=== PATIENT | female | born 1940 | race Native Hawaiian/Other Pacific Islander ===

== ENCOUNTER 2016-05-03 07:40 | Outpatient (CLI) | payer OTHER ==
[2016-05-03 08:39] LABS: PLATELET COUNT 214 K/uL (152-353)
== END 2016-05-03 19:09 | disposition home or self-care (01) ==
LOC: LABW 07:40
PROVIDERS: Internal Medicine Endocrinology, Diabetes & Metabolism
DX: E03.8 Other specified hypothyroidism (principal); Z79.899 Other long term (current) drug therapy; I10 Essential (primary) hypertension; E83.42 Hypomagnesemia; Z51.81 Encounter for therapeutic drug level monitoring; D64.9 Anemia, unspecified
CPT/HCPCS: 36415; 80053; 82728; 83540; 83550; 83735; 84436; 84443; 84479; 85027

== ENCOUNTER 2016-10-27 08:35 | Outpatient (CLI) | payer OTHER ==
[2016-10-27 08:58] LABS: PLATELET COUNT 204 K/uL (152-353)
[2016-10-27 09:18] LABS: POTASSIUM 4.5 mmol/L (3.6-5.2)
== END 2016-10-27 09:35 | disposition home or self-care (01) ==
LOC: LABW 08:35
PROVIDERS: Internal Medicine Endocrinology, Diabetes & Metabolism
DX: E03.8 Other specified hypothyroidism (principal); D64.89 Other specified anemias; Z79.899 Other long term (current) drug therapy; E78.4 Other hyperlipidemia; I10 Essential (primary) hypertension; E11.9 Type 2 diabetes mellitus without complications; E83.42 Hypomagnesemia
CPT/HCPCS: 36415; 80053; 80061; 83036; 83735; 84443; 85027

== ENCOUNTER 2016-12-15 09:36 | Outpatient (CLI) | payer OTHER | END 2016-12-15 19:03 | disposition home or self-care (01) | LOC: RAD 09:36 | DX: M41.86 Other forms of scoliosis, lumbar region (principal); M47.895 Other spondylosis, thoracolumbar region ==

== ENCOUNTER 2017-02-12 15:31 | Outpatient (CLI) | payer OTHER | END 2017-02-12 16:35 | disposition home or self-care (01) | LOC: RAD 15:31 | DX: R05 Cough (principal) ==

== ENCOUNTER 2017-05-22 14:20 | Outpatient (CLI) | payer OTHER | END 2017-05-22 22:57 | disposition home or self-care (01) | LOC: RAD 14:20 | DX: M25.562 Pain in left knee (principal) ==

== ENCOUNTER 2017-06-14 11:22 | Outpatient (CLI) | payer OTHER | END 2017-06-14 22:05 | disposition home or self-care (01) | LOC: MAMMO 11:22 | DX: Z12.31 Encounter for screening mammogram for malignant neoplasm of breast (principal); M81.0 Age-related osteoporosis without current pathological fracture ==

== ENCOUNTER 2017-06-27 07:50 | Outpatient (CLI) | payer OTHER ==
[2017-06-27 08:21] LABS: PLATELET COUNT 198 K/uL (152-353)
[2017-06-27 08:52] LABS: POTASSIUM 3.7 mmol/L (3.6-5.2)
== END 2017-06-27 21:37 | disposition home or self-care (01) ==
LOC: LABW 07:50
PROVIDERS: Internal Medicine Endocrinology, Diabetes & Metabolism
DX: E03.8 Other specified hypothyroidism (principal); D64.89 Other specified anemias; E78.4 Other hyperlipidemia; Z79.899 Other long term (current) drug therapy; Z51.81 Encounter for therapeutic drug level monitoring; I10 Essential (primary) hypertension
CPT/HCPCS: 36415; 80053; 80061; 84443; 85027

== ENCOUNTER 2017-12-17 16:52 | Outpatient (CLI) | payer OTHER ==
[2017-12-17 17:09] LABS: PLATELET COUNT 211 K/uL (152-353)
== END 2017-12-17 19:57 | disposition home or self-care (01) ==
LOC: LABW 16:52
PROVIDERS: Internal Medicine Endocrinology, Diabetes & Metabolism
DX: E03.9 Hypothyroidism, unspecified (principal); I10 Essential (primary) hypertension; Z79.899 Other long term (current) drug therapy; D64.9 Anemia, unspecified
CPT/HCPCS: 36415; 80053; 84443; 85027

== ENCOUNTER 2018-06-17 08:21 | Outpatient (CLI) | payer OTHER ==
[2018-06-17 08:40] LABS: PLATELET COUNT 189 K/uL (152-353)
[2018-06-17 09:01] LABS: POTASSIUM 3.7 mmol/L (3.6-5.2)
== END 2018-06-17 19:30 | disposition home or self-care (01) ==
LOC: LABW 08:21
PROVIDERS: Internal Medicine Endocrinology, Diabetes & Metabolism
DX: D64.89 Other specified anemias (principal); Z79.899 Other long term (current) drug therapy; E03.8 Other specified hypothyroidism; E78.49 Other hyperlipidemia; I10 Essential (primary) hypertension
CPT/HCPCS: 36415; 80053; 80061; 84443; 85027

== ENCOUNTER 2018-10-21 15:40 | Outpatient (CLI) | payer OTHER | END 2018-10-21 23:59 | disposition home or self-care (01) | LOC: RAD 15:40 | DX: M54.6 Pain in thoracic spine (principal); M54.5 Low back pain; S69.82XA Other specified injuries of left wrist, hand and finger(s), initial encounter ==

== ENCOUNTER 2018-12-16 08:33 | Outpatient (CLI) | payer OTHER ==
[2018-12-16 09:22] LABS: POTASSIUM 4.9 mmol/L (3.6-5.2)
[2018-12-16 10:11] LABS: PLATELET COUNT 143 K/uL (152-353)
== END 2018-12-16 19:56 | disposition home or self-care (01) ==
LOC: LABW 08:33
PROVIDERS: Internal Medicine Endocrinology, Diabetes & Metabolism
DX: E03.8 Other specified hypothyroidism (principal); D64.89 Other specified anemias; Z79.899 Other long term (current) drug therapy; E78.49 Other hyperlipidemia; I10 Essential (primary) hypertension
CPT/HCPCS: 36415; 80053; 80061; 84436; 84443; 84479; 85027

== ENCOUNTER 2019-02-02 21:09 | Outpatient (CLI) | payer OTHER ==
[2019-02-02 21:48] LABS: PLATELET COUNT 149 K/uL (152-353)
[2019-02-02 22:38] LABS: POTASSIUM 4.8 mmol/L (3.6-5.2)
== END 2019-02-02 21:35 | disposition home or self-care (01) ==
LOC: LABW 21:09
PROVIDERS: Internal Medicine
DX: N18.3 Chronic kidney disease, stage 3 (moderate) (principal)
CPT/HCPCS: 36415; 80053; 83735; 83970; 84100; 85027

== ENCOUNTER 2019-03-05 16:11 | Outpatient (CLI) | payer OTHER ==
[2019-03-05 16:42] LABS: PLATELET COUNT 152 K/uL (152-353)
[2019-03-05 16:44] LABS: POTASSIUM 5.3 mmol/L (3.6-5.2)
== END 2019-03-05 19:22 | disposition home or self-care (01) ==
LOC: LABW 16:11
PROVIDERS: Internal Medicine
DX: N18.3 Chronic kidney disease, stage 3 (moderate) (principal)
CPT/HCPCS: 36415; 80053; 83735; 83970; 84100; 85027

== ENCOUNTER 2019-05-04 21:47 | Emergency (ER) | payer OTHER ==
[~2019-05-04] VITALS: Ht 157.5 cm; Wt 79.4 kg
[2019-05-04 22:40] LABS: PLATELET COUNT 158 K/uL (152-353)
[2019-05-04 22:50] LABS: POTASSIUM 4.9 mmol/L (3.6-5.2)
[2019-05-05 01:50] VITALS: BP 203/89; TEMP 97
== END 2019-05-05 01:50 | disposition home or self-care (01) ==
LOC: ED 21:47
PROVIDERS: Hospitalist
DX: S43.492A Other sprain of left shoulder joint, initial encounter (principal); S83.8X2A Sprain of other specified parts of left knee, initial encounter; S00.83XA Contusion of other part of head, initial encounter; S40.012A Contusion of left shoulder, initial encounter; S80.02XA Contusion of left knee, initial encounter; W18.39XA Other fall on same level, initial encounter; Y92.090 Kitchen in other non-institutional residence as the place of occurrence of the external cause
CPT/HCPCS: 80048; 85027; 85610; 85730; 90471; 90715; 96372; 99284; J2270; J2405

== ENCOUNTER 2019-06-16 19:33 | Outpatient (CLI) | payer OTHER ==
[2019-06-16 20:23] LABS: PLATELET COUNT 152 K/uL (152-353)
[2019-06-16 20:53] LABS: POTASSIUM 5.6 mmol/L (3.6-5.2)
== END 2019-06-16 20:12 | disposition home or self-care (01) ==
LOC: LABW 19:33
PROVIDERS: Internal Medicine Endocrinology, Diabetes & Metabolism
DX: E83.51 Hypocalcemia (principal); E03.8 Other specified hypothyroidism; I10 Essential (primary) hypertension; Z79.899 Other long term (current) drug therapy; D64.89 Other specified anemias
CPT/HCPCS: 36415; 80053; 84436; 84443; 84479; 85027

== ENCOUNTER 2019-07-09 09:06 | Emergency (ER) | payer OTHER ==
[~2019-07-09] VITALS: Ht 157.5 cm; Wt 79.4 kg
[2019-07-09 09:07] VITALS: BP 161/107; TEMP 97.9
[2019-07-09 09:40] LABS: POTASSIUM 4.1 mmol/L (3.6-5.2)
[2019-07-09 09:50] LABS: PLATELET COUNT 159 K/uL (152-353)
== END 2019-07-09 12:22 | disposition home or self-care (01) ==
LOC: ED 09:06
PROVIDERS: Emergency Medicine
DX: R41.82 Altered mental status, unspecified (principal); E86.0 Dehydration
CPT/HCPCS: 80053; 81000; 85027; 93005; 96360; 96361; 99284

== ENCOUNTER 2019-08-10 17:23 | Emergency (ER) | payer OTHER ==
[~2019-08-10] VITALS: Ht 157.5 cm; Wt 74.4 kg
[2019-08-10 20:03] VITALS: BP 135/82; TEMP 98
== END 2019-08-10 20:09 | disposition home or self-care (01) ==
LOC: ED 17:23
DX: S00.81XA Abrasion of other part of head, initial encounter (principal); M25.512 Pain in left shoulder; M25.562 Pain in left knee; S42.035A Nondisplaced fracture of lateral end of left clavicle, initial encounter for closed fracture; R51 Headache; W18.39XA Other fall on same level, initial encounter; Y92.096 Garden or yard of other non-institutional residence as the place of occurrence of the external cause
CPT/HCPCS: 36415; 96372; 99283; J1885; J2270; J2405

== ENCOUNTER 2019-09-19 09:13 | Outpatient (CLI) | payer OTHER | END 2019-09-19 19:39 | disposition home or self-care (01) | LOC: RAD 09:13 | PROVIDERS: ATTEND Nurse Practitioner Family | DX: M25.512 Pain in left shoulder (principal); M79.602 Pain in left arm; R22.32 Localized swelling, mass and lump, left upper limb ==

== ENCOUNTER 2019-10-20 21:07 | Emergency (ER) | payer OTHER ==
[~2019-10-20] VITALS: Ht 162.6 cm; Wt 74.4 kg
[2019-10-20 21:07] VITALS: TEMP 98.7
[2019-10-20 22:25] VITALS: BP 198/72
== END 2019-10-20 22:25 | disposition home or self-care (01) ==
LOC: ED 21:07
DX: S00.83XA Contusion of other part of head, initial encounter (principal); S09.8XXA Other specified injuries of head, initial encounter; S00.81XA Abrasion of other part of head, initial encounter; S51.011A Laceration without foreign body of right elbow, initial encounter; W01.198A Fall on same level from slipping, tripping and stumbling with subsequent striking against other object, initial encounter; Y92.098 Other place in other non-institutional residence as the place of occurrence of the external cause
CPT/HCPCS: 99283

== ENCOUNTER 2019-12-07 19:17 | Outpatient (CLI) | payer OTHER ==
[2019-12-07 21:25] LABS: POTASSIUM 4.7 mmol/L (3.6-5.2)
== END 2019-12-07 19:54 | disposition home or self-care (01) ==
LOC: LABW 19:17
PROVIDERS: Internal Medicine
DX: N18.30 Chronic kidney disease, stage 3 unspecified (principal)
CPT/HCPCS: 36415; 80053; 83735; 83970; 84100

== ENCOUNTER 2019-12-25 11:36 | Outpatient (CLI) | payer OTHER ==
[2019-12-25 12:06] LABS: PLATELET COUNT 192 K/uL (152-353)
[2019-12-25 12:16] LABS: POTASSIUM 4.4 mmol/L (3.6-5.2)
== END 2019-12-25 23:16 | disposition home or self-care (01) ==
LOC: LABW 11:36
PROVIDERS: Internal Medicine Endocrinology, Diabetes & Metabolism
DX: E03.8 Other specified hypothyroidism (principal); E83.52 Hypercalcemia; E87.5 Hyperkalemia; E78.49 Other hyperlipidemia; D64.89 Other specified anemias
CPT/HCPCS: 36415; 80053; 80061; 83735; 84436; 84443; 84479; 85027

== ENCOUNTER 2020-01-28 14:01 | Outpatient (CLI) | payer OTHER | END 2020-01-28 20:02 | disposition home or self-care (01) | LOC: RAD 14:01 | PROVIDERS: ATTEND Nurse Practitioner Family | DX: R60.0 Localized edema (principal) ==

== ENCOUNTER 2020-03-22 17:45 | Outpatient (CLI) | payer OTHER ==
[2020-03-22 18:44] LABS: PLATELET COUNT 186 K/uL (152-353)
[2020-03-22 19:23] LABS: POTASSIUM 4.5 mmol/L (3.6-5.2)
== END 2020-03-22 20:58 | disposition home or self-care (01) ==
LOC: LABW 17:45
PROVIDERS: ATTEND Internal Medicine
DX: N18.4 Chronic kidney disease, stage 4 (severe) (principal); R82.998 Other abnormal findings in urine
CPT/HCPCS: 36415; 80053; 81000; 82306; 82330; 82570; 83735; 83970; 84100; 84155; 85027; 87077; 87086; 87088; 87186

== ENCOUNTER 2020-04-28 11:10 | Emergency (ER) | payer OTHER ==
[~2020-04-28] VITALS: Ht 162.6 cm; Wt 74.4 kg
[2020-04-28 11:22] VITALS: TEMP 97.4
[2020-04-28 14:28] VITALS: BP 169/70
== END 2020-04-28 14:28 | disposition home or self-care (01) ==
LOC: ED 11:10
PROC: 0HQ1XZZ Repair Face Skin, External Approach (ICD-10-PCS; principal; 2020-04-28)
DX: S02.2XXA Fracture of nasal bones, initial encounter for closed fracture (principal); S01.81XA Laceration without foreign body of other part of head, initial encounter; W01.198A Fall on same level from slipping, tripping and stumbling with subsequent striking against other object, initial encounter; Y92.098 Other place in other non-institutional residence as the place of occurrence of the external cause
CPT/HCPCS: 90471; 90715; 96372; 99283; 99284; J7040

== ENCOUNTER 2020-06-28 15:55 | Outpatient (CLI) | payer OTHER ==
[2020-06-28 16:38] LABS: PLATELET COUNT 218 K/uL (152-353)
== END 2020-06-28 21:54 | disposition home or self-care (01) ==
LOC: LABW 15:55
PROVIDERS: ATTEND Internal Medicine Endocrinology, Diabetes & Metabolism
DX: D64.89 Other specified anemias (principal); E03.8 Other specified hypothyroidism; I10 Essential (primary) hypertension; E83.51 Hypocalcemia; Z79.899 Other long term (current) drug therapy
CPT/HCPCS: 36415; 80053; 83735; 84439; 84443; 85027

== ENCOUNTER 2020-07-22 14:13 | Outpatient (CLI) | payer OTHER | END 2020-07-22 22:00 | disposition home or self-care (01) | LOC: MAMMO 14:13 | PROVIDERS: ATTEND Family Medicine | DX: N63.0 Unspecified lump in unspecified breast (principal) ==

== ENCOUNTER 2020-07-26 19:05 | Emergency (ER) | payer OTHER ==
[~2020-07-26] VITALS: Ht 162.6 cm; Wt 74.8 kg
[2020-07-26 19:10] VITALS: TEMP 97.9
[2020-07-26 20:45] VITALS: BP 158/69
== END 2020-07-26 20:45 | disposition home or self-care (01) ==
LOC: ED 19:05
DX: S39.012A Strain of muscle, fascia and tendon of lower back, initial encounter (principal); S00.83XA Contusion of other part of head, initial encounter; S43.014A Anterior dislocation of right humerus, initial encounter; W01.198A Fall on same level from slipping, tripping and stumbling with subsequent striking against other object, initial encounter; Y92.098 Other place in other non-institutional residence as the place of occurrence of the external cause
CPT/HCPCS: 96372; 99283; J1885

== ENCOUNTER 2020-08-05 20:15 | Observation (INO) | payer OTHER ==
[~2020-08-05] VITALS: Ht 162.6 cm; Wt 79.2 kg
[2020-08-05 21:35] LABS: PLATELET COUNT 197 K/uL (152-353)
[2020-08-05 21:51] LABS: POTASSIUM 4.9 mmol/L (3.6-5.2); SODIUM 141 mmol/L (136-145)
[2020-08-05 22:41] VITALS: BP 187/66; TEMP 98.3; Ht 162.6 cm; Wt 79.2 kg
[2020-08-06] VITALS: BP 148/66; TEMP 97.9
[2020-08-06] MEDS ORDERED: SPIRONOLACT25 MG PO (03:29)
[2020-08-06] MEDS ORDERED: OYSTER SHELL C500 M4 PO (03:32)
[2020-08-06] MEDS ORDERED: VITAMIN D2000 UNI3 PO (03:35)
[2020-08-06] MEDS ORDERED: HYDR10TA47 PO (03:36)
[2020-08-06] MEDS ORDERED: LEVO-T300 MCG PO (03:40)
[2020-08-06] MEDS ORDERED: LEVO-T150 MCG PO (03:42)
[2020-08-06] MEDS ORDERED: CALCITRIOL0.25 MCG PO (03:45)
[2020-08-06] MEDS ORDERED: PROBEN/COLCH1 TAB PO (03:50)
[2020-08-06 04:00] VITALS: BP 123/43; TEMP 97.9
[2020-08-06] MEDS ORDERED: GRALISE300 MG PO (04:05)
[2020-08-06] MEDS ORDERED: MAG OXIDE400 MG PO (04:06)
[2020-08-06] MEDS ORDERED: AMIODARONE HYD200 MG PO (04:08)
[2020-08-06] MEDS ORDERED: CARV12.5 PO (04:10)
[2020-08-06] MEDS ORDERED: POTA20TA4 PO (04:11)
[2020-08-06] MEDS ORDERED: DIGOX125 MCG PO (04:16)
[2020-08-06] MEDS ORDERED: CYCL10TA35 PO (04:18)
[2020-08-06] MEDS ORDERED: AMBIEN5 MG PO (04:20)
[2020-08-06 04:49] LABS: PLATELET COUNT 163 K/uL (152-353)
[2020-08-06 05:04] LABS: POTASSIUM 4.2 mmol/L (3.6-5.2)
[2020-08-06 08:00] VITALS: BP 153/63; TEMP 98.2
--- NOTE | 2020-08-06 10:15 | NUR ---
LABS REPORTED TO DR BROOKS VIA PHONE AT THIS ITME. NEW ORDERS REC'D TO GIVE 500ML NS AT 100ML/HR AND TO REPLACE MAGNESIUM PER ELECTROLYTE PROTOCOL.
[2020-08-06 12:00] VITALS: BP 155/60; TEMP 98
[2020-08-06 16:00] VITALS: BP 141/53; TEMP 97.4
--- NOTE | 2020-08-06 18:18 | NUR ---
PT TELEMETRY DC'D, 20G IV TO LA DC'D TIP INTACT NO REDNESS OR SWELLING NOTED. DISCHARGE INSTRUCTIONS GIVEN TO PT'S DAUGHTER. INSTRUCTED TO FOLLOW UP WITH DR. BROOKS ON AUGUST 10, 2020 AT 1100. INSTRUCTED TO LEAVE UNABOOTS ON UNTIL FOLLOW UP WITH WOUND CARE CLINIC. INSTRUCTED TO ACCOUNT SUPPORT MANAGER BACTRIM DS ANTIBIOTICS AND TAKE UNTIL COMPLETE. PT CURRENTLY EATING SUPPER AND WILL BE DISCHARGED WHEN DONE. PT'S DAUGHTER HERE TO TAKE PT HOME.
--- NOTE | 2020-08-07 13:37 | NUR ---
PT CALLED AND STATED THAT IN THE PAST WHEN SHE HAD TAKEN BACTRIM DS THAT HER FACE BROKE OUT. EXPLAINED TO PT THAT I WOULD HAVE TO NOTIFY DR BROOKS AND I WOULD CALL HER BACK. [address] BROOKS AND INFOMRED HER WHAT PT HAD CALLED AND STATED. DR BROOKS REQUESTED URINE CULTURE RESULTS. INFORMATION LOOKED UP AND RESULTS REPORTED AT THIS TIME VIA PHONE. NEW ORDERS REC'D TO CALL KEFLEX 500MG TAKE ONE TAB EVERY 8 HRS FOR 3 DAYS. WILL CALL [facility] IN PER MD ORDERS. AND WILL CONTACT PT AND INFOMR HER WELL.
== END 2020-08-06 18:45 | disposition home or self-care (01) ==
LOC: MED/SURG 20:15
PROVIDERS: ADMIT Family Medicine; ATTEND Family Medicine
DX: N39.0 Urinary tract infection, site not specified (principal); B96.20 Unspecified Escherichia coli [E. coli] as the cause of diseases classified elsewhere
CPT/HCPCS: 36415; 80053; 81000; 82550; 83735; 84100; 84484; 85027; 87040; 87077; 87086; 87088; 87186; 87635; 93005; 96365; 96367; 99220; G0378; G0379; J0696; J3475; U0003

== ENCOUNTER 2020-09-05 05:24 | Emergency (ER) | payer OTHER ==
[~2020-09-05] VITALS: Ht 162.6 cm; Wt 77.1 kg
[2020-09-05 05:24] VITALS: TEMP 96.5
[~2020-09-05 05:24] MED LIST: AMBIEN5 MG PO; AMIODARONE HYD200 MG PO; CALCITRIOL0.25 MCG PO; CARV12.5 PO; CYCL10TA35 PO; DIGOX125 MCG PO; GRALISE300 MG PO; HYDR10TA47 PO; LEVO-T150 MCG PO; LEVO-T300 MCG PO; MAG OXIDE400 MG PO; OYSTER SHELL C500 M4 PO; POTA20TA4 PO; PROBEN/COLCH1 TAB PO; SPIRONOLACT25 MG PO; VITAMIN D2000 UNI3 PO
[2020-09-05 06:11] LABS: PLATELET COUNT 163 K/uL (152-353)
[2020-09-05 06:17] LABS: POTASSIUM 4.6 mmol/L (3.6-5.2)
[2020-09-05 09:00] VITALS: BP 129/66
== END 2020-09-05 09:25 | disposition short-term general hospital (02) ==
LOC: ED 05:24
PROVIDERS: Family Medicine
PROC: 0HQ1XZZ Repair Face Skin, External Approach (ICD-10-PCS; principal; 2020-09-05)
DX: S72.091A Other fracture of head and neck of right femur, initial encounter for closed fracture (principal); S43.084A Other dislocation of right shoulder joint, initial encounter; S40.211A Abrasion of right shoulder, initial encounter; S50.311A Abrasion of right elbow, initial encounter; S01.81XA Laceration without foreign body of other part of head, initial encounter; S72.114A Nondisplaced fracture of greater trochanter of right femur, initial encounter for closed fracture; S43.014A Anterior dislocation of right humerus, initial encounter; W01.198A Fall on same level from slipping, tripping and stumbling with subsequent striking against other object, initial encounter; Y92.89 Other specified places as the place of occurrence of the external cause
CPT/HCPCS: 80053; 85027; 96360; 96361; 99284; J2270

== ENCOUNTER 2020-09-20 14:30 | Emergency (ER) | payer OTHER ==
[~2020-09-20] VITALS: Ht 162.6 cm; Wt 77.1 kg
[2020-09-20 15:25] LABS: PLATELET COUNT 195 K/uL (152-353)
[2020-09-20 15:34] LABS: POTASSIUM 4.9 mmol/L (3.6-5.2); SODIUM 134 mmol/L (136-145)
[2020-09-20 20:25] VITALS: BP 164/81; TEMP 98.3
== END 2020-09-20 20:25 | disposition home or self-care (01) ==
LOC: ED 14:30
PROVIDERS: Emergency Medicine Emergency Medical Services
PROC: 0T9B70Z Drainage of Bladder with Drainage Device, Via Natural or Artificial Opening (ICD-10-PCS; principal; 2020-09-20)
DX: Z91.81 History of falling (principal); S00.03XA Contusion of scalp, initial encounter; S00.83XA Contusion of other part of head, initial encounter; N39.0 Urinary tract infection, site not specified; W01.198A Fall on same level from slipping, tripping and stumbling with subsequent striking against other object, initial encounter; Y92.89 Other specified places as the place of occurrence of the external cause
CPT/HCPCS: 36591; 51702; 80053; 81000; 83880; 84484; 85027; 87077; 87086; 87088; 87186; 93005; 96365; 96375; 99284; J0696; J1642; J1940

== ENCOUNTER 2020-09-22 12:40 | Inpatient (IN) | payer OTHER ==
[~2020-09-22] VITALS: Ht 157.5 cm; Wt 81.2 kg
[2020-09-22 12:40] VITALS: BP 164/69; TEMP 97.6
[2020-09-22 13:00] VITALS: BP 149/74
[2020-09-22 14:00] VITALS: BP 151/77
[2020-09-22 14:59] LABS: PLATELET COUNT 165 K/uL (152-353)
[2020-09-22 15:00] VITALS: BP 141/69
[2020-09-22 15:07] LABS: POTASSIUM 4.3 mmol/L (3.6-5.2)
[2020-09-22 17:00] VITALS: BP 162/66
[2020-09-22] MEDS ORDERED: TRAM50TA PO (17:17)
--- NOTE | 2020-09-22 19:57 | NUR ---
PT ARRIVED TO MED-SURG FLOOR AT 1825 FROM ER. PT ALERT AND ORIENTED. DAUGHTER AT BEDSIDE. IVF INFUSING AT 100ML/HR WITH NS. ASSESSMENT NOT COMPLETED ON PT. REPORT GIVEN TO NOE CHAVEZ FOR ASSESSMENT TO BE COMPLETED.
[2020-09-22 20:36] VITALS: BP 95/52; TEMP 97.9
[2020-09-22] MEDS ORDERED: CYCL10TA35 PO (22:29)
[2020-09-22] MEDS ORDERED: TRAMADOL HYDROC50 MG PO (22:30)
[2020-09-22] MEDS ORDERED: KLOR-CON M2020 MEQ PO (22:31)
[2020-09-22] MEDS ORDERED: DIGO0.1230 PO (22:35)
[2020-09-22] MEDS ORDERED: SPIR100T7 PO (22:41)
[2020-09-22] MEDS ORDERED: MAG OXIDE250 MG PO (22:45)
[2020-09-22] MEDS ORDERED: [UNRECOGNIZED DRUG - CODE] PO (22:52)
[2020-09-23] VITALS (7 sets, daily range): BP systolic 105–132; BP diastolic 37–71; TEMP 97.3–97.9; Ht 157.5 cm; Wt 81.2 kg
[2020-09-23 08:14] LABS: POTASSIUM 4.2 mmol/L (3.6-5.2)
[2020-09-23 08:16] LABS: PLATELET COUNT 165 K/uL (152-353)
[2020-09-23] MEDS ORDERED: PANTOPRAZOLE 40MG TA PO (08:27)
--- NOTE | 2020-09-23 09:04 | NUR ---
[facility] [employer] [phone] Kirkpatrick's request for home safety and options of home vs nusring home. Intake ID#[id number]. They will assign trimming caser and they may contact Dr. Kirkpatrick or this account underwriter.
--- NOTE | 2020-09-23 10:00 | NUR ---
PT SITTING ON SOB RECEIVING BED BATH WITH MAX ASSISTANCE, PT STATES SHE FEELS SHORT OF BREATH AND PRESSURE IN HER ABDOMEN, VITALS OBTAINED 97% O2 ON RA, 118/57,20RR,80HR, DR. BROOKS NOTIFIED AND ORDERS ACUTE ABDOMEN SERIES TO ASSESS FOR IMPACTION OR CONSTIPATION, DRESSING CHANGED TO MID CHEST/STERNUM CLEANSED, 17 ASHU NOTED INTACT WITH LIGHT BLEEDING NOTED, ABD PAD PLACED AND SECURED WITH PAPER TAPE, DRESSINGS TO LT LOWER EXT REMOVED AND AREAS CLEANSED WITH NS OPEN BLISTER NOTED TO LT KNEE WITH RED SKIN NOTED, TWO BLISTERS NOTED TO LOWER LT LEG INTACT, AREAS CLEANSED AND DRESSED WITH TELFA AND GAUZE AND SECURED WITH TAPE, PT TOLERATED PROCEDURE WELL, MANEUVERD PT BACK IN HF WITH MAX ASSITANCE NEEDED, CALL LIGHT PLACED WITHIN REACH, WILL CONTINUE TO MONITOR
--- NOTE | 2020-09-23 15:29 | NUR ---
UNNA BOOTS APPLIED TO BILAT LOWER EXT, WRAPED WITH SOFT TOO, SMALL AMOUNT OF COBAN TO SECURE DRESSING, PT TOLERATED PROCEDURE WELL
--- NOTE | 2020-09-23 16:26 | NUR ---
DR. BROOKS ORDERS LACTULOSE 60ML ONCE NOW AND FOLLOWUP IN 4HRS IF NO BM
--- NOTE | 2020-09-23 17:15 | NUR ---
DR. BROOKS IN WITH PT DISCUSSING OPTIONS FOR CARE AFTER DISCHARGE, PT AGREED TO BE ADMITTED TO LTC FACILITY UPON DISCHARGE, DR. BROOKS ORDERS DIFLUCAN 200MG IV X1 DOSE NOW AND DIFLUCAN 100MG DAILY STARTING 03/27/20, GI COCKTAIL ACHS, NO FURTHER ORDERS GIVEN AT THIS TIME
--- NOTE | 2020-09-23 17:48 | NUR ---
at 11:15am today Dr. Kirkpatrick asked this service writer advisor to step into charting room sitting area with pts family member Sakina Cuellar to speak privately. Dr. Kirkpatrick notified this service writer advisor that Mrs. Cuellar wanted to speak to her to report what pt stated. Per Mrs. Cuellar, pt stated to her in the ER yesterday to "please take me home with you". Mrs. Cuellar stated that on multiple occasions that the pt stated she did not want to go back to her home, that she wanted to "stay with you". Dr. Kirkpatrick informed Mrs. Cuellar that because she is not the next of kin that Mrs. Cuellar would need to speak with pts daughter, Nathaly Mejia, who is listed as next of kin about pts discharge status. Mrs. Cuellar inquired if the pt wanted her to become her guardian and if her daughter, Nathaly, was in agreement, how she would go about making that a legal document. Mrs. Cuellar was advised by Dr. Kirkpatrick that she would need to consult the probate court, Apolonia Rodriguez. Dr. Kirkpatrick went on to state that the pt is not allowed to have any visitors at this time due to the hospital visition policy that was updated yesterday.
[2020-09-24 00:07] VITALS: BP 99/48; TEMP 97.4
[2020-09-24 04:00] VITALS: BP 117/43; TEMP 98
[2020-09-24 04:51] LABS: PLATELET COUNT 162 K/uL (152-353)
[2020-09-24 05:43] LABS: POTASSIUM 4.2 mmol/L (3.6-5.2)
[2020-09-24 07:59] VITALS: BP 124/49; TEMP 97.9
--- NOTE | 2020-09-24 08:45 | NUR ---
late entry: at 5:20pm yesterday, i went to pts room to discuss her discharge plans, Mary Luna RN and Dr. Kirkpatrick were present in room with pt. Dr. Kirkpatrick informed pt that she is recommending that she go to extended rehab in a LTC facility for approx 30-90 days to give her the best chance for recovery. Pt has multiple bruising to her face, a large hematoma to her right forehead, abrasions and brusing to upper extremities. Dr. Kirkpatrick instructed pt that she did not feel that she was safe to return home at this time due to her instability and frequent falls and that she needs 24 hr care daily at this time. Pt verbalized understanding and stated she is hayden greement to this plan. today at 8:30am, i spoke with pt again in her room with her daughter, Nathaly Mejia present. I explained to Ms. House and Mrs. Mejia that Dr. Kirkpatrick wanted me to confirm with both of them about her recommendations for extended rehab hayden LTC facility at this time. I questioned Ms. House if she recalled her conversation with Dr. Kirkpatrick, the nurse Mary Luna RN, and myself from the day before and she stated "Yes". I asked Mrs. Mejia if she was in agreement with this plan and she stated "Yes". I asked what facilities they would like me to reach out to and Mrs. Mejia stated "[facility]". I asked Ms. House if she was in agreement with me reaching out to [facility] as her first choice and she stated "yes". I will follow up with pts daughter, Mrs. Nathaly Mejia after i am able to make contact with [facility].
[2020-09-24 12:07] VITALS: BP 110/55; TEMP 97.4
--- NOTE | 2020-09-24 13:10 | NUR ---
I spoke with Michelle @ [facility], she stated that pt needs to complete her third midnight stay tonight and they cannot accept admission on sat or sun. She stated they will revisit this pt on Sunday and may be able to accept her for admission on Sunday. Dr. Kirkpatrick notified, will notify pts daughter this afternoon as she said she would call later to check on pt and is currently sleeping due to her work schedule.
[2020-09-24 15:48] VITALS: BP 103/55; TEMP 97.3
[2020-09-24 17:48] LABS: PLATELET COUNT 166 K/uL (152-353)
[2020-09-24 18:38] LABS: POTASSIUM 4.6 mmol/L (3.6-5.2)
[2020-09-24 20:00] VITALS: BP 108/37; TEMP 97.7
--- NOTE | 2020-09-24 20:04 | NUR ---
PT CALLED TO BE PLACED ON THE BEDPAN. PT WAS PLACED ON BEDPAN BY TIE CARRIER AND PCT. PT WAS ASSISTED IN ROLLING BY PCT, NAD WAS NOTED DURING PLACEMENT ON BEDPAN. CAUTION WAS USED DURING ROLLING DUE TO POTENTIAL SKIN TEARING.
--- NOTE | 2020-09-24 20:30 | NUR ---
CLARK WAS REMOVED BY STOCK SHEETS CLEANER INSPECTOR PER DOCTOR'S ORDERS. 10ML OF WATER WAS PULLED FROM BALLOON. CLARK WAS REMOVED WITHOUT DIFFICULTY WITH TIP STILL INTACT. PRIOR TO CLARK REMOVAL THERE WAS 350 ML OF URINE IN THE COLLECTION BAG. URINE WAS TEA COLORED. WILL CONTINUE TO MONITOR FOR URINE OUTPUT.
--- NOTE | 2020-09-24 22:45 | NUR ---
PT CALLED SOFTWARE PROJECT ENGINEER TO THE ROOM, PT STATED "I THINK I NEED TO GO TO THE BATHROOM BUT I DONT KNOW". PT ALSO STATED THAT "I WANT TO GET UP", SOFTWARE PROJECT ENGINEER EXPLAINED TO PT THAT SHE DOES NOT NEED TO GET UP RIGHT NOW BECAUSE SHE IS WEAK. PT WAS ASSISTED ONTO BEDPAIN BY SOFTWARE PROJECT ENGINEER AND PCT WITHOUT DIFFICULTY. PT BEGAN STATING THAT WE NEEDED TO CALL HER SON IN LAW BECAUSE SHE WAS WORRIED ABOUT HIM. SOFTWARE PROJECT ENGINEER TRIED TO DIAL THE PHONE NUMBERS THAT PT GAVE TO REACH SON IN LAW BUT THEY WOULD NOT GO THROUGH. PT BECAME AGITATED AND HER CELL PHONE WAS GIVEN TO HER WHERE SHE TRIED TO DIAL THE NUMBERS HERSELF AND GOT MORE CONFUSED. SOFTWARE PROJECT ENGINEER SUGGESTED TO PT THAT WE CAN TRY AGAIN IN THE MORNING THAT THEY MAY BE ASLEEP AT THIS TIME. PT AGREED AND WAS REMOVED OFF THE BEDPAN, NO URINE WAS VOIDED INTO THE BEDPAN. NO DISTRESS IS NOTED AT THIS TIME, CALL LIGHT IS WITHIN REACH, SIDE RAILS UP X3 AND BED ALARM ON.
[2020-09-25] VITALS: BP 143/37; TEMP 97.2
[2020-09-25 04:00] VITALS: BP 137/67; TEMP 97.3
--- NOTE | 2020-09-25 04:37 | NUR ---
PT CALLED PATROL INSPECTOR TO ROOM TO ASSIST TO USE THE BATHROOM. PT INSISTED THAT SHE IS NOT GOING TO USE THE BEDPAN BUT THAT SHE IS GOING TO GET OUT OF THE BED AND USE THE BEDSIDE COMMODE. WHEN PATROL INSPECTOR EXPLAINED TO PT THAT SHE COULD NOT GET OUT OF THE BED DUE TO BEING AT RISK FOR FALLING PT BECAME AGITATED AND STATED "I AM NOT THE PATIENT, JAYSHREE IS" REFERRING TO HER DAUGHTER NAMED JAYSHREE. WHEN PATROL INSPECTOR ATTEMPTED TO CORRECT THE PT SHE BECAME INCREASINGLY AGITATED AND TOLD PATROL INSPECTOR TO CALL HER DAUGHTER AND THAT HER DAUGHTER WOULD VERIFY THAT SHE IS NOT THE PT. HER DAUGHTER WAS CONTACTED AND SPOKE WITH HER EXPLAINING THAT SHE WAS THE PATIENT AND THAT SHE DID NOT NEED TO GET OUT OF THE BED OR SHE WOULD FALL. PATROL INSPECTOR LEFT PT TO SPEAK ON THE PHONE WITH HER DAUGHTER.
[2020-09-25 05:40] LABS: PLATELET COUNT 160 K/uL (152-353)
[2020-09-25 05:41] LABS: POTASSIUM 4.7 mmol/L (3.6-5.2)
--- NOTE | 2020-09-25 07:45 | NUR ---
Pt. RESTING BED. UNNO BOOT INTAKE. DRESSING INTAKE MID CHEST AND L LEG.
[2020-09-25 08:00] VITALS: BP 136/62; TEMP 97.9
[2020-09-25 12:00] VITALS: BP 156/55; TEMP 98.1
--- NOTE | 2020-09-25 12:00 | NUR ---
DRESSING CHANGED TO MID CHEST. CLEANSED WITH NS. DRY ABD PAD APPLIED TAPED TO SECURE. STAPLE INTACTED. L LEG HAS SMALL AMT OF PURULENT DRAINAGE. CLEANSED WITH NS, TELFA APPLIED AND 4X4. WRAPPED WITH TOO. TAPED TO SECURE.
[2020-09-25 16:00] VITALS: BP 153/63; TEMP 98
--- NOTE | 2020-09-25 16:30 | NUR ---
Pt. CONFUSED AT TIME THINKING SHE IS IN THE HALF-WAY. Pt. CALLS DAUGHTERS NAME CONTINUOUSLY. Pt. TURNED Q2HRS.
[2020-09-25 20:00] VITALS: BP 143/63; TEMP 98.2
--- NOTE | 2020-09-25 22:51 | NUR ---
PT VERY CONFUSED. KEEPS CALLING FOR HER SUPPER OF FRIED CHICKEN THAT DR. BROOKS OR JAYSHREE WAS SUPPOSE TO BRING. INFORMED PT THAT SUPPER WAS 4 HRS AGO AND THAT THERE WAS NO FRIED CHICKEN HERE. PT STATED SHE WAS SUPPOSE TO GO TO DR. BROOKS'S HOUSE FOR SUPPER. PT HAS CALLED FOR CHICKEN 3 TIMES.
[2020-09-26] VITALS: BP 127/84; TEMP 97.7
--- NOTE | 2020-09-26 02:55 | NUR ---
PT SHORT OF BREATH. RESPIRATIONS 30 WITH CRACKLES AND WHEEZES AUSCULTATED. DR. BROOKS NOTIFIED OF SAME AND ORDERS WE RECEIVED TO D/C IV FLUID AND GIVE 20 OF LASIX IV. ORDER WRITTEN AND FAXED TO PHARMACY. IV FLUID DC/D.
--- NOTE | 2020-09-26 03:54 | NUR ---
0300: IV LASIX GIVEN. PT HAS SEVER EDEMA IN LOWER LEGS AND BLISTERS ARE NOW NOTED TO BOTH LEGS. PT HAS O2 @2L NC AND O2 SAT IS 95%.
[2020-09-26 04:23] LABS: PLATELET COUNT 186 K/uL (152-353)
[2020-09-26 04:26] VITALS: BP 121/39; TEMP 98.1
--- NOTE | 2020-09-26 04:35 | NUR ---
0410: DR. BROOKS CALLED HERE FOR UPDATE ON PT. PT'S RESPIRATIONS ARE STILL AT 30 BREATHS PER MINUTE AND PT IS STILL CONFUSED. ORDERS RECEIVED FOR ANOTHER LASIX 20MG IV, A CHEST XRAY, EKG AND TO DRAW MORNING LABS NOW. ORDERS WRITTEN.
[2020-09-26 04:38] LABS: POTASSIUM 4.9 mmol/L (3.6-5.2)
--- NOTE | 2020-09-26 05:56 | NUR ---
0550: PT REQUESTED TO GO TO THE BATHROOM. INSTRUCTED PT THAT SHE WAS TOO WEAK TO GET UP. PT STATED SHE HAD TO HAVE A BM. BEDPAN PROVIDED.
[2020-09-26 08:00] VITALS: BP 134/54; TEMP 97.5
--- NOTE | 2020-09-26 09:44 | NUR ---
PT IS SCREAMING "HELP ME" FROM HER ROOM. MARKET BASKET MAKER ENTERED ROOM AND PT IS TRYING TO GET OUT OF THE BED. PT BECAME AGITATED WHEN MARKET BASKET MAKER EXPLAINED THAT SHE CANNOT GET UP BECAUSE SHE IS AT RISK FOR FALLING. PT CONTINUED TO STATE THAT SHE WILL GET OUT OF THE BED. MARKET BASKET MAKER EXPLAINED TO PT THAT SHE WILL HELP HER GET TO THE CHAIR WHEN SHE CAN GET SOME HELP TO DO SO.
--- NOTE | 2020-09-26 11:05 | NUR ---
PT'S BRIEF HAS BEEN CHANGED AND NEW UNNA BOOT APPLIED TO BILATERAL LOWER EXTREMITIES AND NEW ABD PAD PLACED OVER LACERATION ON STERNAL AREA, 18 ASHU WERE COUNTED BEFORE PLACEMENT OF PAD, PAD WAS TAPED DOWN WITH PAPER TAPE. WITH THE ASSISTANCE OF OT PT HAS BEEN MOVED FROM THE BED TO THE CHAIR WITH 2 PERSON ASSIST. PT IS NOW SITTING UPRIGHT IN THE CHAIR WITH HEELS ELEVATED ON PILLOWS AND CALL LIGHT WITHIN REACH. NO DISTRESS IS NOTED AT THIS TIME.
[2020-09-26 12:00] VITALS: BP 151/57; TEMP 97.5
--- NOTE | 2020-09-26 14:00 | NUR ---
PT ASKED TO BE PLACED ON THE BEDPAN WHILE SITTING IN THE CHAIR. MOLD LOFT WORKER AND PCT ASSISTED PT UP TO PLACE THE BEDPAN UNDER PT. TO GET PT TO STAND WAS A MAX ASSIST USING THE GAIT BELT, PT COULD NOT BEAR WEIGHT WELL. PT SAT ON BEDPAN FOR 10 MINS WITHOUT URINATING. BEDPAN WAS REMOVED FROM UNDER THE PT AND A FRESH BRIEF WAS PUT ON. WHILE ON THE BED [place] PT'S FEET WERE ASSESSED BY MOLD LOFT WORKER, TOES WERE PURPLE AND BLANCHED WHEN TOUCHED. CAP REFILL WAS <3 SECONDS. KONSTANTIN BANDAGES WERE LOOSENED AND LEGS RE-ELEVATED THEN COLOR BEGAN TO RETURN TO TOES. PT WAS PROPPED UP IN THE RECLINER WITH PILLOWS KEEPING LEGS ELEVATED AND BONY PROMINENCES OFF OF HARD SURFACES OF THE CHAIR. CALL LIGHT IS WITHIN REACH AND PT IS COVERED UP WITH A BLANKET AND ASLEEP AT THIS TIME.
[2020-09-26 16:00] VITALS: BP 78/59; TEMP 97.3
[2020-09-26 20:00] VITALS: BP 117/60; TEMP 96.9
--- NOTE | 2020-09-26 23:04 | NUR ---
PT WANTS TO GET OUT OF BED. INSTRUCTED PT THAT WE COULD NOT GET HER UP. PT STATED SHE COULDN'T BREATH O2 SAT CHECKED AND WAS 99% WITH O2 AT 2L NC. SAT PT STRAIGHT UP IN BED WITH HEAD OF BED ALL THE WAY UP. PT VERY ANXIOUS.
--- NOTE | 2020-09-27 02:25 | NUR ---
09/26/20 2300: PT CALLED DAUGHTER AND TOLD HER THAT HER HEART WAS RUNNING AWAY AND SHE COULDN'T BREATH. HER O2 SAT AT THIS TIME WAS 99% AND HEART RATE WAS 65 BEATS PER MINUTE. INFORMED DAUGHTER OF SAME BECAUSE PT WAS WANTING HER TO CALL DR. BROOKS FOR "SOMETHING." REASSURED DAUGHTER THAT PT WAS DOING FINE RESPIRATORY AREVALO AND CARDIAC AREVALO.
--- NOTE | 2020-09-27 02:40 | NUR ---
PT CALLED TO NURSES STATION ON ROOM TELEPHONE TO TELL THE NURSE SHE WANTS TO GET UP. INFORMED PT THAT SHOULD COULD NOT GET UP TONIGHT. PT STATED, " I CAN WALK" INSTRUCTED PT THAT SHE WAS TOO WEAK TO GET OUT OF BED AND THAT SHE COULD NOT WALK. PT HAD MULTIPLE FALLS AT HOME AND WAS INJURED. PT CONFUSED. PT HAD BEEN FED HER CHICKEN DINNER AND ATE APPROXIMATELY 15%.
[2020-09-27 04:00] VITALS: BP 133/47; TEMP 97.7
[2020-09-27 04:49] LABS: PLATELET COUNT 175 K/uL (152-353)
[2020-09-27 05:24] LABS: POTASSIUM 4.2 mmol/L (3.6-5.2)
[2020-09-27 08:00] VITALS: BP 150/48; TEMP 97.6
[2020-09-27 12:00] VITALS: BP 120/60; TEMP 97.6
--- NOTE | 2020-09-27 15:34 | NUR ---
i received call today from [facility] x [phone] that they could accept Ms. Chantale House at the [facility] re[facility] tomorrow morning. I notified pt, daughter Nathaly Mejia [phone], and Dr. Kirkpatrick and they were all in agreement with this plan.
[2020-09-27 16:00] VITALS: BP 150/55; TEMP 97.6
--- NOTE | 2020-09-27 18:47 | NUR ---
DR. BROOKS HERE TO SEE PATIENT AT THIS TIME.
[2020-09-27 20:00] VITALS: BP 130/51; TEMP 97.9
--- NOTE | 2020-09-27 20:10 | NUR ---
PATIENT RESTING QUIETLY AT THIS TIME. NO ACUTE DISTRESS NOTED, CALL LIGHT WITHIN REACH. WILL CONTINUE TO MONITOR.
--- NOTE | 2020-09-27 20:35 | NUR ---
PM SHIFT ASSESSMENT COMPLETED AT THIS TIME, PATIENT TOLERATED ASSESSMENT WELL BUT IS COMPLAINING OF "SEVERE BACK PAIN" AT THIS TIME AND RATES IT A 8 OUT OF 10. INFORMED PATIENT I WOULD RETURN IN A FEW MINUTES WITH HER DAILY NIGHT TIME MEDS AND SOMETHING FOR HER PAIN. PATIENT STATES "HOW MANY MINUTES?" AND DENIES ANY OTHER COMPLAINTS OR REQUESTS AT THIS TIME. NO ACUTE DISTRESS NOTED AT THIS TIME. CALL LIGHT WITHIN REACH. WILL CONTINUE TO MONITOR.
--- NOTE | 2020-09-27 20:45 | NUR ---
IN PATIENTS ROOM TO ADMINISTER PM DAILY MEDS AND GIVE NORCO 1 TAB PO ORDERED PRN. PATIENT GIVEN PO MEDS ONE AT A TIME AND SLOWLY AND PATIENT TOLERATED MEDS WELL. PATIENT REPOSITIONED IN THE BED, DENIES ANY COMPLAINTS OR REQUESTS AND NO ACUTE DISTRESS NOTED AT THIS TIME. CALL LIGHT WITHIN HER REACH, BED ALARM REMAINS ON AND WILL CONTINUE TO MONITOR.
--- NOTE | 2020-09-27 21:34 | NUR ---
NOTIFIED PER HONEY EXTRACTOR/INFORMATION SYSTEMS PROJECT MANAGER THAT PATIENTS HEARTRATE IS BRADYING DOWN AND IS READING 35 AT THIS TIME. NAVA HENDRIX AND MYSELF WENT DIRECTLY INTO PATIENTS ROOM AND CALLED PATIENTS NAME AND ATTEMPTED TO DO A STERNAL RUB BUT PATIENT IS UNRESPOSIVE AND TELE BOX READING A HEARTRATE OF 30 AND NO PALABLE PULSE FELT, BRIANA LIANG CALLED AT 2135. DR. BROOKS ALSO CALLED AT 2135. WHEN PATIENT PLACED ON RESOURCE MANAGER FORESTER/AED, RYTHYM IS ASYSTOLE. DR. CARVER(ER DOCTOR) RESPONDED AND IN THE ROOM, MAI GAR RN (ER NURSE), ROM(LAB), FAMILY WORKER AND IMANIRT FROM RESPIRATORY AT THE BEDSIDE AT 2139. LUCUS APPLIED TO ASSIST WITH COMPRESSIONS. AT 2141 SIZE 7 ET TUBE PLACED AND PATIENT BEING VENTILATED WELL. AT 2143 COMPRESSIONS STOPPED, AED ANALYZING, NO SHOCK ADVISED, ASYSTOLE AND CONTINUE CPR. AT 2144 EPINEPHRINE 1MG GIVEN THRU PATIENTS PORT A CATH LEFT CHEST WALL, DR. CARVER REMAINS AT BEDSIDE AND COMPRESSIONS CONTINUE. AT 2145 COMPRESSIONS STOPPED TO ANALYZE AND NO SHOCK ADVISED, ASYSTOLE CONTINUE CPR AND DR. BROOKS HERE AT THIS TIME. AT 2145 ATROPINE 1 MG GIVEN VIA PATIENTS PORT A CATH. AT 2147 COMPRESSIONS STOPPED TO ANALYZE AND SHOCK ADVISED. VFIB SHOWING ON MONITOR. SHOCK DELIVERED AND CPR CONTINUED. CPR CONTINUED. DR. BROOKS SPEAKING WITH PATIENTS DAUGHTER. AT 2148 SECOND DOSE OF EPINEPHRINE GIVEN IV VIA PATIENTS PORT. AT 2148 CPR HELD TO CHECK RYTHYM, NO SHOCK ADVISED, PATIENT REMAINS IN ASYSTOLE. AT 2149 PATIENT AND TIME OF . DR. BROOKS SPEAKING WITH PATIENT DAUGHTER. AT 222O PATIENTS DAUGHTER, SON IN LAW AND NEICE INTO VIEW BODY. AT 2242 FAMILY REQUESTS [facility] HOME AND NOTIFIED [employer] EDUCATION PLAN AIDE LINE AT [phone]. AT 2255 BODY RELEASED TO [facility].
== END 2020-09-27 22:55 | disposition expired | DRG 641 ==
LOC: ED 12:48 → MED/SURG 16:40
PROVIDERS: Family Medicine; ADMIT Family Medicine; ATTEND Family Medicine
PROC: 0HQ5XZZ Repair Chest Skin, External Approach (ICD-10-PCS; principal; 2020-09-22)
DX: R62.7 Adult failure to thrive (principal); N39.0 Urinary tract infection, site not specified; S21.119A Laceration without foreign body of unspecified front wall of thorax without penetration into thoracic cavity, initial encounter; I13.0 Hypertensive heart and chronic kidney disease with heart failure and stage 1 through stage 4 chronic kidney disease, or unspecified chronic kidney disease; N17.8 Other acute kidney failure; E86.0 Dehydration; R53.1 Weakness; W18.11XA Fall from or off toilet without subsequent striking against object, initial encounter; Z91.81 History of falling; Y92.89 Other specified places as the place of occurrence of the external cause; I48.91 Unspecified atrial fibrillation; F01.50 Vascular dementia, unspecified severity, without behavioral disturbance, psychotic disturbance, mood disturbance, and anxiety; I89.0 Lymphedema, not elsewhere classified; T40.2X5A Adverse effect of other opioids, initial encounter; T42.6X5A Adverse effect of other antiepileptic and sedative-hypnotic drugs, initial encounter; Y92.238 Other place in hospital as the place of occurrence of the external cause; E83.42 Hypomagnesemia; R74.8 Abnormal levels of other serum enzymes; E66.01 Morbid (severe) obesity due to excess calories; Z68.32 Body mass index [BMI] 32.0-32.9, adult; B35.8 Other dermatophytoses; B37.2 Candidiasis of skin and nail; E03.8 Other specified hypothyroidism; M15.8 Other polyosteoarthritis; E11.22 Type 2 diabetes mellitus with diabetic chronic kidney disease; N18.30 Chronic kidney disease, stage 3 unspecified; I50.89 Other heart failure; I46.9 Cardiac arrest, cause unspecified; W06.XXXA Fall from bed, initial encounter; Y92.230 Patient room in hospital as the place of occurrence of the external cause
CPT/HCPCS: 31500; 36415; 80053; 80074; 81000; 83735; 83880; 84100; 84443; 85027; 87635; 92950; 93005; 94760; 96360; 96375; 99283; 99284; J1450; J1885; J1940; J3475; J7040; U0003